=== PATIENT | female | born 1945 | race Caucasian/White ===

== ENCOUNTER 2020-03-22 13:13 | Inpatient (IN) ==
[2020-03-22] MEDS ORDERED: Clindamycin 900 MG/50 ML 900 MG/50 ML IV.SOLN IVPB ONE (14:32)
[2020-03-22] MEDS ORDERED: Ringers Solution, Lactated 1,000 ML IVC SCH ×2 (14:45→18:25)
[2020-03-22 14:59] LABS: Basophils # 0.1 K/mcL (0.0-0.2); Basophils % 0.8 %; Eosinophils # 0.5 K/mcL (0.0-0.6); Hematocrit 44.6 % (35.3-44.9); Hemoglobin 14.7 g/dL (11.5-15.4); Immature Granulocytes % 0.3 % (0-4); Lymphocytes % 24.5 %; Mean Corpuscular Hemoglobin 31.7 pg (28.0-33.3); Mean Corpuscular Volume 96.3 fL (83.0-100.0); Mean Platelet Volume 9.1 fL (9.4-12.4); Monocytes % 7.9 %; Neutrophils # 7.5 K/mcL (1.6-8.9); Platelet Count 298 K/mcL (140-400); Red Blood Count 4.63 M/mcL (3.82-4.97); Red Cell Distribution Width 13.1 % (11.5-14.5); Segmented Neutrophils % 62.5 %; White Blood Count 12.1 K/mcL (4.3-11.1)
[2020-03-22 15:17] LABS: BUN/Creatinine Ratio 24 (6-26); Blood Urea Nitrogen 17 mg/dL (8-23); Calcium 10.3 mg/dL (8.6-10.3); Carbon Dioxide 27 mEq/L (23-29); Chloride 103 mEq/L (98-107); Glucose 117 mg/dL (70-105); Osmolality,Calculated 287 (280-300); Sodium 137 mEq/L (136-145); eGFR For African Americans > 60 (> 60); eGFR For Non-African Americans > 60 (> 60)
[2020-03-22] MEDS ORDERED: *HR* HYDROmorphone PF 0.5 MG/0.5 ML SYRINGE IVP PRN (15:32)
[2020-03-22] MEDS ORDERED: *HR* Promethazine 25 MG/ML VIAL IVP PRN (15:32)
[2020-03-22] MEDS ORDERED: Ondansetron 4 MG/2 ML VIAL IVP ONE (15:32)
[2020-03-22] MEDS ORDERED: *HR* OxyCODONE Immed Rel 5 MG TABLET PO PRN (15:32)
[2020-03-22] MEDS ORDERED: *HR* Propofol 200 MG/20 ML VIAL IVP ONE (16:02)
[2020-03-22] MEDS ORDERED: Ropivacaine/PF 0.5% 30 ML VIAL ONE (16:04)
[2020-03-22] MEDS ORDERED: Ethanol\\Acetic Acid\\Na Ace\\Ben 1,000 ML IRRIG.SOLN IR ONE (16:11)
[2020-03-22] MEDS ORDERED: Vancomycin 1,000 MG VIAL ONE (16:11)
[2020-03-22] MEDS ORDERED: Ondansetron 4 MG/2 ML VIAL ONE (16:33)
[2020-03-22] MEDS ORDERED: Dexamethasone 4 MG/ML VIAL ONE (16:39)
[2020-03-22] MEDS ORDERED: *HR* Enoxaparin 30 MG/0.3 ML SYRINGE SQ SCH (18:00)
[2020-03-22 18:22] LABS: Hematocrit 44.9 % (35.3-44.9); Hemoglobin 14.8 g/dL (11.5-15.4)
[2020-03-22] MEDS ORDERED: D5% in Water 1,000 ML IVC PRN (18:25)
[2020-03-22] MEDS ORDERED: *HR* OxyCODONE/APAP 5/325 TABLET PO PRN (18:25)
[2020-03-22] MEDS ORDERED: Dextrose Gel 15 GM/37.5 ML TUBE PO PRN ×2 (18:25)
[2020-03-22] MEDS ORDERED: Ondansetron 4 MG/2 ML VIAL IVP PRN (18:25)
[2020-03-22] MEDS ORDERED: Nitroglycerin 0.4 MG TAB.SUBL SL PRN (18:25)
[2020-03-22] MEDS ORDERED: ALPRAZolam 0.5 MG TABLET PO PRN (18:25)
[2020-03-22] MEDS ORDERED: *HR* Dextrose 50 % in Water (Vial) 50 ML VIAL IVP PRN (18:25)
[2020-03-22] MEDS ORDERED: Sennosides 8.6 MG TABLET PO PRN (18:25)
[2020-03-22] MEDS ORDERED: Naloxone 0.4 MG/ML INJ IVP PRN (18:25)
[2020-03-22] MEDS ORDERED: MOM Conc 10 ML UD.LIQ PO PRN (18:25)
[2020-03-22] MEDS ORDERED: Insulin LISPRO 300 UNITS/3 ML VIAL SQ SCH (21:00)
[2020-03-22] MEDS: Clindamycin 900 MG/50 ML 900 MG/50 ML IV.SOLN IVPB SCH (23:17)
[2020-03-23] MEDS: *HR* OxyCODONE Immed Rel 5 MG TABLET PO PRN ×4 (02:56→14:28)
[2020-03-23] MEDS ORDERED: ALPRAZolam 0.5 MG TABLET PO ONE (03:01)
[2020-03-23 04:35] LABS: Hematocrit 43.8 % (35.3-44.9); Hemoglobin 14.3 g/dL (11.5-15.4)
[2020-03-23 04:52] LABS: BUN/Creatinine Ratio 26 (6-26); Blood Urea Nitrogen 19 mg/dL (8-23); Calcium 9.3 mg/dL (8.6-10.3); Carbon Dioxide 23 mEq/L (23-29); Chloride 104 mEq/L (98-107); Glucose 215 mg/dL (70-105); Osmolality,Calculated 289 (280-300); Potassium 4.3 mEq/L (3.5-5.1); Sodium 135 mEq/L (136-145); eGFR For African Americans > 60 (> 60); eGFR For Non-African Americans > 60 (> 60)
[2020-03-23] MEDS ORDERED: *HR* Enoxaparin 30 MG/0.3 ML SYRINGE SQ SCH (06:00)
[2020-03-23] MEDS: Clindamycin 900 MG/50 ML 900 MG/50 ML IV.SOLN IVPB SCH (08:14)
[2020-03-23] MEDS: Insulin LISPRO 300 UNITS/3 ML VIAL SQ SCH ×2 (08:25→11:05)
[2020-03-23] MEDS ORDERED: predniSONE 20 MG TABLET PO SCH (09:00)
[2020-03-23] MEDS ORDERED: lisinopriL 20 MG TABLET PO SCH (09:00)
[2020-03-23] MEDS ORDERED: Cholecalciferol (D-3) 1,000 UNIT (25MCG) TABLET PO SCH (09:00)
[2020-03-23] MEDS ORDERED: *HR* SitaGLIPtin 100 MG TABLET PO SCH (09:00)
[2020-03-23] MEDS ORDERED: Spironolactone 25 MG TABLET PO SCH (09:00)
[2020-03-23 13:28] VITALS: BP 108/65
== END 2020-03-23 15:16 | disposition home health service (06) | DRG 483 ==
LOC: SAMDAY 13:13 → 3NENU 18:23
PROVIDERS: ADMIT Orthopaedic Surgery; ATTEND Orthopaedic Surgery